=== PATIENT | female | born 1995 | race Caucasian/White ===

== ENCOUNTER 2023-06-29 17:33 | Emergency (ER) | payer OTHER ==
[~2023-06-29] VITALS: Ht 165.1 cm; Wt 86.2 kg
[2023-06-29 17:35] VITALS: BP_SYST 149; PULSE 132; RESP 18; TEMP 98.2; O2SAT 98
[2023-06-29] MEDS: EPINEPHrine HCL 1 MG/ML VIAL IM ONE ×2 (18:02→18:03)
[2023-06-29 18:10] LABS: BASOPHILS % (AUTO) 0.2 % (0.0-2.0); EOSINOPHILS % (AUTO) 0.3 % (0.0-4.0); HEMATOCRIT 41.4 % (36-48); HEMOGLOBIN 13.9 g/dL (12.0-16.0); LYMPHOCYTES # (AUTO) 2.3 K/uL (1.0-5.5); LYMPHOCYTES % (AUTO) 20.9 % (20.5-51.5); MEAN CORPUSCULAR HEMOGLOBIN 29 pg (27-31); MEAN CORPUSCULAR HGB CONC 34 % (32-36); MEAN CORPUSCULAR VOLUME 86 fL (79.0-98.0); MONOCYTES # (AUTO) 0.6 K/uL (0.0-1.0); MONOCYTES % (AUTO) 5.1 % (1.7-9.3); NEUTROPHILS # (AUTO) 8.2 K/uL (1.8-7.7); NEUTROPHILS % (AUTO) 73.5 % (40.0-70.0); PLATELET COUNT (AUTO) 277 K/uL (130-430); RED BLOOD CELL COUNT(AUTO) 4.79 MIL/uL (4.2-6.2); RED CELL DISTRIBUTION WIDTH 13.7 % (9.0-15.0); WHITE BLOOD COUNT (AUTO) 11.2 K/uL (4.8-10.8)
[2023-06-29 18:26] LABS: SERUM HCG (QUALITATIVE) NEGATIVE (NEGATIVE)
[2023-06-29 18:30] LABS: ANION GAP 7 (5-15); CALCIUM 8.5 mg/dL (8.4-11.0); CARBON DIOXIDE 29 mmol/L (23-29); CHLORIDE 107 mmol/L (98-107); CREATININE 0.78 mg/dL (0.55-1.30); GFR AFRICAN AMERICAN 116 mL/min (>90); GFR NON AFRICAN-AMERICAN 96 mL/min (>90); GLUCOSE 122 mg/dL (74-106); SODIUM SERUM 143 mmol/L (136-145); UREA NITROGEN, BLOOD 8 mg/dL (8-21)
[2023-06-29] MEDS: DIPHENHYDRAMINE INJ 50 MG/ML VIAL IVP ONE (18:36)
[2023-06-29] MEDS: FAMOTIDINE PF 20 MG/2 ML VIAL IVP ONE (18:37)
[2023-06-29] MEDS: METHYLPREDNISOLONE SOD SUCC 40 MG/ML VIAL IVP ONE (18:38)
[2023-06-29] MEDS ORDERED: DIPH25CA83 PO (21:26)
[2023-06-29] MEDS ORDERED: EPIN0.3P3 IM (21:26)
[2023-06-29] MEDS ORDERED: PRED20TA PO (21:26)
[2023-06-29 22:00] VITALS: BP_SYST 125; PULSE 83; RESP 18; TEMP 98.2; O2SAT 98
== END 2023-06-29 22:00 | disposition home or self-care (01) ==
LOC: SED 17:33
DX: R13.10 Dysphagia, unspecified (principal); R21 Rash and other nonspecific skin eruption; T78.1XXA Other adverse food reactions, not elsewhere classified, initial encounter; X58.XXXA Exposure to other specified factors, initial encounter
CPT/HCPCS: 99285; 96374; 93971; 96375; 71045; 80048; 84703; 83880; 85025; 84484; 36415; 96372; J1200; J0171; J3490; J1030